=== PATIENT | male | born 1990 | race Two or more races ===

== ENCOUNTER 2020-05-09 16:14 | Emergency (ER) | payer SELFPAY ==
[~2020-05-09] VITALS: Ht 165.1 cm; Wt 68.0 kg
[2020-05-09 16:20] VITALS: BP 145/77
--- NOTE | 2020-05-09 16:29 | NUR ---
ED Nurse Note: Pt from home came in due to possible spider bite on his right wrist happened 3 days ago. Noted large swelling, redness with small amount of drainage from a bite qian on pt's wrist. AAO x4 and ambulatory.
[2020-05-09] MEDS ORDERED: Ketorolac 30mg Inj IM ONE (16:30)
[2020-05-09] MEDS ORDERED: Lidocaine 1% MPF 10mg/ml 5ml INJ ONE (16:30)
[2020-05-09] MEDS ORDERED: Tetanus/Diptheria/Pertussis IM ONE (16:30)
--- NOTE | 2020-05-09 16:52 | Emergency Room Report ---
History of Present Illness General Chief Complaint: Skin Rash/Abscess Source: Patient Present Illness HPI 29-year-old male with no signal past medical history here complaining of a painful lesion, warm to touch and tightness in right wrist and hand that started 2 days ago while working. Patient does not know how it started however reports that he has been around a lot of spiders and it might be a spider bite. Denies any nausea vomiting, fever and chills, chest pain shortness of breath. Has range of motion of hand and wrist. No bony tenderness noted. Cellulitic changes noted. Minimal blood drainage however no pus drainage noted. Patient is neurovascularly intact. Not up-to-date with tetanus shot. 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 Patient History Past Medical History: see triage record Past Surgical History: none Pertinent Family History: none Reviewed Nursing Documentation: PMH: Agreed; PSxH: Agreed Nursing Documentation-PMH Past Medical History: No Stated History Hx Cardiac Problems: No Hx Hypertension: No Hx Pacemaker: No Hx Asthma: No Hx COPD: No Hx Diabetes: No Hx Cancer: No Hx Gastrointestinal Problems: No Hx Dialysis: No History Of Psychiatric Problem: No Hx Neurological Problems: No Hx Cerebrovascular Accident: No Hx Seizures: No Review of Systems All Other Systems: negative except mentioned in HPI Physical Exam Vital Signs Date Time Temp Pulse Resp B/P (MAP) Pulse Ox O2 Delivery O2 Flow Rate FiO2 05/09/20 16:20 98.1 103 16 145/77 98 Room Air Sp02 EP Interpretation: reviewed, normal General Appearance: no apparent distress, alert, GCS 15, non-toxic Head: normocephalic, atraumatic Eyes: bilateral eye normal inspection, bilateral eye PERRL ENT: hearing grossly normal, normal pharynx, normal voice Neck: full range of motion, supple/symm/no masses Respiratory: chest non-tender, lungs clear, normal breath sounds, no rhonchi, no retraction, speaking full sentences Cardiovascular #1: regular rate, rhythm, no edema, no murmur Gastrointestinal: normal bowel sounds, non tender, soft, non-distended, no guarding, no rebound Genitourinary: no CVA tenderness Musculoskeletal: back normal, normal range of motion, pelvis stable, gait/ station normal, non-tender, swelling - Right wrist and hand with cellulitic changes Neurologic: alert, motor strength/tone normal, oriented x3, sensory intact, responsive, speech normal Psychiatric: judgement/insight normal, memory normal, mood/affect normal, no suicidal/homicidal ideation Skin: other - Cellulitic changes of right wrist and hand with minimal blood drainage Lymphatic: no adenopathy Medical Decision Making PA Attestation All my diagnosis and treatment plans were reviewed ad discussed with my supervising physician Dr. Obrien Diagnostic Impression: Primary Impression: Cellulitis ER Course 29-year-old male with no signal past medical history here complaining of a painful lesion, warm to touch and tightness in right wrist and hand that started 2 days ago while working. Patient does not know how it started however reports that he has been around a lot of spiders and it might be a spider bite. Denies any nausea vomiting, fever and chills, chest pain shortness of breath. Has range of motion of hand and wrist. No bony tenderness noted. Cellulitic changes noted. Minimal blood drainage however no pus drainage noted. Patient is neurovascularly intact. Not up-to-date with tetanus shot. Ddx considered but are not limited to : Cellulitis, , superficial infection, abscess Vital signs: are WNL, pt. is afebrile H&PE are most consistent with: Cellulitis right hand and wrist ORDERS: Keflex, prednisone, ibuprofen, hydrocortisone cream, wrist x-ray ED INTERVENTIONS: Toradol, dexamethasone, Rocephin, Tdap DISCHARGE: At this time pt. is stable for d/c to home. Will provide printed patient care instructions, and any necessary prescriptions. Care plan and follow up instructions have been discussed with the patient prior to discharge. Patient take medication as directed, follow primary care provider, wound check is needed in 24 to 48 hours, if worsening symptoms return to emergency room Patient was evaluated in the context of the global COVID-19 pandemic, which necessitated consideration that the patient might be at risk for infection with the SARS-COV-2 virus that causes COVID-19. Institutional protocols and algorithms that pertain to the evaluation of patients at risk for COVID-19 are in a state of rapid change based on information relieved by multiple regulatory bodies including the CDC and the federal and state organizations. These policies and algorithms were followed during the patient's care in the ED. Other X-Ray Diagnostic Results Other X-Ray Diagnostic Results : X-Ray ordered: Right wrist Indication: Pain EP Interpretation: Yes AMINATA Xray: Interpretation reviewed, by supervising MD, and agrees with findings. Interpretation: no dislocation, no soft tissue swelling, no fractures Impression: No acute disease Electronically Signed by: Stefan Collins PA-C Last Vital Signs Date Time Temp Pulse Resp B/P (MAP) Pulse Ox O2 Delivery O2 Flow Rate FiO2 05/09/20 16:20 98.1 103 16 145/77 (99) 98 Room Air Disposition: HOME, SELF-CARE Condition: Stable Scripts Prednisone* (PREDNISONE*) 20 Mg Tablet 40 MG ORAL DAILY for 5 Days, #10 TAB Prov: Stefan Cohn 05/09/20 Ibuprofen (Ibu) 800 Mg Tablet 800 MG PO TID, #30 TAB Prov: Stefan Cohn 05/09/20 Cephalexin* (KEFLEX*) 500 Mg Capsule 500 MG ORAL EVERY 6 HOURS for 7 Days, #28 CAP Prov: Stefan Cohn 05/09/20 Patient Instructions: Cellulitis, [id number] Additional Instructions: Take medication as directed, follow with primary doctor, worsening symptoms return to the emergency room. Wound check as needed in 24 to 48 hours. Stefan Cohn May 09, 2020 16:52
--- NOTE | 2020-05-09 16:58 | NUR ---
ED Nurse Note: Per PA order, Cleansed wound with NS, covered with non stick dressing then wrapped with kerlix and secured with tape.
[2020-05-09] MEDS ORDERED: CEPHALEXIN500 MG ORAL (17:08)
[2020-05-09] MEDS ORDERED: IBU800 MG PO (17:08)
[2020-05-09] MEDS ORDERED: PREDNISONE20 MG ORAL (17:08)
[2020-05-09 17:14] VITALS: BP 142/80
--- NOTE | 2020-05-09 17:14 | NUR ---
ER DISCHARGE NOTE: Patient is cleared to be discharged per PA, pt is aox4, on room air, with stable vital signs. pt was given dc and prescription instructions, pt was able to verbalize understanding, pt id band removed. pt is able to ambulate with steady gait. pt took all belongings.
--- NOTE | 2020-05-09 17:39 | Diagnostic Imaging Report ---
Clinical Indication:Wrist pain Technique: 3 views of the right wrist Comparison: None Findings: No acute fractures. No dislocations. The joint spaces are preserved. Impression: No acute process
== END 2020-05-09 17:14 | disposition home or self-care (01) ==
LOC: EMR 16:45
DX: L03.113 Cellulitis of right upper limb (principal)
CPT/HCPCS: 73110; 90471; 90715; 96372; 96374; 99283; J0696; J1100; J1885